=== PATIENT | female | born 2000 | race Caucasian/White ===

== ENCOUNTER 2022-06-01 15:48 | Emergency (ER) | payer OTHER ==
[~2022-06-01] VITALS: Ht 162.6 cm; Wt 47.7 kg
[2022-06-01] MEDS ORDERED: MULTTAB20 PO (16:04)
[2022-06-01 20:59] LABS: BASO # 0.1 10^3/uL (0.0-0.2); BASO % 0.6 % (0.0-1.0); EOS # 0.1 10^3/uL (0.0-0.5); EOS % 0.9 % (0.0-3.0); HEMATOCRIT 39.4 % (36.0-47.0); HEMOGLOBIN 13.5 g/dl (12.0-15.5); LYMPH # 1.8 10^3/uL (1.5-5.0); LYMPH % 21.4 % (24.0-44.0); MEAN CORPUSCULAR HEMOGLOBIN 29.6 pg (27.0-33.0); MEAN CORPUSCULAR HGB CONC 34.3 g/dl (32.0-36.5); MEAN CORPUSCULAR VOLUME 86.4 fl (80.0-96.0); MONO # 0.5 10^3/uL (0.0-0.8); MONO % 5.6 % (2.0-8.0); NEUTROPHILS # 6.1 10^3/uL (1.5-8.5); NEUTROPHILS % 71.3 % (36.0-66.0); PLATELET COUNT, AUTOMATED 210 10^3/uL (150-450); RED BLOOD COUNT 4.56 10^6/uL (4.00-5.40); WHITE BLOOD COUNT 8.6 10^3/uL (4.0-10.0)
[2022-06-01 21:25] LABS: LIPASE 49 U/L (12-53)
[2022-06-01 21:27] LABS: ALBUMIN 3.8 G/DL (3.2-5.2); ALKALINE PHOSPHATASE 49 U/L (46-116); ALT/SGPT 23 U/L (7.0-40); AST/SGOT 24 U/L (<34); BLOOD UREA NITROGEN 8 MG/DL (9-23); CALCIUM LEVEL 9.4 MG/DL (8.5-10.1); CARBON DIOXIDE LEVEL 25 MMOL/L (20-31); CHLORIDE LEVEL 101 MMOL/L (98-107); CREATININE FOR GFR 0.51 MG/DL (0.55-1.30); GLOMERULAR FILTRATION RATE > 60.0 (>60); GLUCOSE, FASTING 81 MG/DL (60-100); POTASSIUM SERUM 3.9 MMOL/L (3.5-5.1); SODIUM LEVEL 137 MMOL/L (136-145); TOTAL PROTEIN 6.5 G/DL (5.7-8.2)
[2022-06-01 21:28] LABS: BILIRUBIN,DIRECT 0.3 MG/DL (<0.4)
[2022-06-01] MEDS ORDERED: ONDANSETRON 4MG 2ML VIAL IV ONE (22:15)
[2022-06-01] MEDS ORDERED: NS 1,000 ML IV ONE (22:15)
[2022-06-01 22:58] LABS: APPEARANCE, URINE MANUAL CLEAR (CLEAR); COLOR, URINE MANUAL YELLOW (YELLOW)
[2022-06-01 23:00] LABS: BILIRUBIN, URINE MANUAL NEGATIVE (NEGATIVE); BLOOD URINE MANUAL NEGATIVE (NEGATIVE); GLUCOSE, URINE (UA) MANUAL NEGATIVE (NEGATIVE); KETONE, URINE MANUAL 3+ mg/dL (NEGATIVE); LEUKOCYTE ESTERASE, URINE MAN POSITIVE (NEGATIVE); NITRITE, URINE MANUAL NEGATIVE (NEGATIVE); PROTEIN, URINE MANUAL NEGATIVE (NEGATIVE); UROBILINOGEN, URINE MANUAL NORMAL (NORMAL)
[2022-06-01 23:14] LABS: BACTERIA, URINE SMALL AMOUNT; HYALINE CAST, URINE NONE SEEN /lpf (0-1); MUCUS, URINE MOD AMOUNT (NEGATIVE); RBC, URINE 0-1 /hpf (0-3); SQUAMOUS EPITHELIAL CELL URINE LARGE AMOUNT /hpf (SMALL AMT); WBC, URINE 15-20 /hpf (0-3)
[2022-06-01] MEDS ORDERED: ONDA4TAB6 PO (23:50)
[2022-06-01] MEDS ORDERED: CEPH500C PO (23:51)
[2022-06-02] VITALS: BP 97/51
== END 2022-06-02 00:08 | disposition home or self-care (01) ==
LOC: M ED 15:48
DX: O21.1 Hyperemesis gravidarum with metabolic disturbance (principal); E86.0 Dehydration; Z3A.14 14 weeks gestation of pregnancy; Z79.810 Long term (current) use of selective estrogen receptor modulators (SERMs); Z79.899 Other long term (current) drug therapy
CPT/HCPCS: 76815; 80048; 80076; 81000; 83690; 85025; 96361; 96374; 99284; J2405

== ENCOUNTER → 2022-07-11 | Outpatient (CLI) | payer OTHER ==
[~2022-07-11] MED LIST: CEPH500C PO; MULTTAB20 PO; ONDA4TAB6 PO
== END ==
LOC: M WHC 13:43
PROVIDERS: ATTEND Nurse Practitioner Women's Health
DX: Z34.82 Encounter for supervision of other normal pregnancy, second trimester (principal); Z3A.20 20 weeks gestation of pregnancy

== ENCOUNTER 2022-10-31 16:34 | Emergency (ER) | payer OTHER ==
[~2022-10-31] VITALS: Ht 162.6 cm; Wt 57.5 kg
[2022-10-31] MEDS ORDERED: ACETAMINOPHEN TAB 650MG DOSE (2X325MG) PO ONE (20:00)
[2022-10-31 21:31] VITALS: BP 113/62
== END 2022-10-31 21:30 | disposition home or self-care (01) ==
LOC: M ED 16:34
DX: O9A.213 Injury, poisoning and certain other consequences of external causes complicating pregnancy, third trimester (principal); S52.515A Nondisplaced fracture of left radial styloid process, initial encounter for closed fracture; Y92.009 Unspecified place in unspecified non-institutional (private) residence as the place of occurrence of the external cause; Z91.048 Other nonmedicinal substance allergy status; Z3A.36 36 weeks gestation of pregnancy; Z79.810 Long term (current) use of selective estrogen receptor modulators (SERMs); Z79.83 Long term (current) use of bisphosphonates; Z79.899 Other long term (current) drug therapy

== ENCOUNTER 2022-11-24 05:32 | Inpatient (IN) | payer OTHER ==
[~2022-11-24] VITALS: Ht 162.6 cm; Wt 60.3 kg
[2022-11-24] VITALS (28 sets, daily range): BP systolic 94–216; BP diastolic 52–85; O2SAT 100
[2022-11-24] MEDS ORDERED: VITAD400CA FT (05:59)
[2022-11-24] MEDS ORDERED: HOME MED LIST COMPLETE! XX SCH (06:00)
[2022-11-24] MEDS ORDERED: OXYTOCIN INJ 10UNITS/ML 1ML VIAL IM PRN (08:25)
[2022-11-24] MEDS ORDERED: OXYTOCIN DRIP 30 UNITS in IV 1 EA IV PRN ×4 (08:25)
[2022-11-24] MEDS ORDERED: METHYLERGONOVINE MALEATE 0.2MG/ML 1ML VIAL IM PRN (08:25)
[2022-11-24] MEDS ORDERED: NALBUPHINE HCL 10 MG/ML 1ML AMP IV PRN (08:25)
[2022-11-24] MEDS ORDERED: LIDOCAINE 1% MDV 20ML VIAL INFIL PRN (08:25)
[2022-11-24] MEDS ORDERED: TRANEXAMIC ACID INJection 1,000 MG in NS 100 ML IV PRN (08:25)
[2022-11-24] MEDS ORDERED: PROMETHAZINE 25MG/ML 1ML VIAL IV PRN (08:25)
[2022-11-24] MEDS ORDERED: LACTATED RINGER'S 1000 ML IV STA (08:45)
[2022-11-24] MEDS ORDERED: PENICILLIN G POTASSIUM 5 MU IV 5 MU in D5W MINI-BAG PLUS 100 ML IV STA (08:45)
[2022-11-24] MEDS: LR 1,000 ML IV SCH ×2 (09:10→17:18)
[2022-11-24 09:20] LABS: HEMATOCRIT 37.1 % (36.0-47.0); HEMOGLOBIN 11.7 g/dl (12.0-15.5); MEAN CORPUSCULAR HEMOGLOBIN 25.1 pg (27.0-33.0); MEAN CORPUSCULAR HGB CONC 31.5 g/dl (32.0-36.5); MEAN CORPUSCULAR VOLUME 79.6 fl (80.0-96.0); PLATELET COUNT, AUTOMATED 195 10^3/uL (150-450); RED BLOOD COUNT 4.66 10^6/uL (4.00-5.40); WHITE BLOOD COUNT 10.6 10^3/uL (4.0-10.0)
[2022-11-24] MEDS: PEN G POT 3,000,000 UNIT/50 ML 3,000,000 UNIT in IV 1 EA IV SCH ×3 (13:18→21:00)
[2022-11-24] MEDS ORDERED: ONDANSETRON 4MG 2ML VIAL IV PRN (15:10)
[2022-11-24] MEDS ORDERED: NALOXONE INJ 0.4MG/1ML VIAL IV PRN (15:10)
[2022-11-24] MEDS ORDERED: diphenhydrAMINE 50MG/ML VIAL IV PRN (15:10)
[2022-11-24] MEDS ORDERED: FENTANYL/ROPIVACAINE/NACL BAG 100 ML EPIDURAL SCH (15:10)
[2022-11-24] MEDS ORDERED: ePHEDrine SULFATE 25 MG/5 ML(5MG/ML) SYRINGE IVP PRN (15:10)
[2022-11-24] MEDS ORDERED: LR 500 ML IV PRN (15:10)
[2022-11-24] MEDS ORDERED: EPIDURAL/PCA KEYS XX PRN (15:10)
[2022-11-24] MEDS ORDERED: ANUSOL HC CREAM 30GM TOP PRN (18:50)
[2022-11-24] MEDS ORDERED: METHYLERGONOVINE MALEATE 0.2 MG TAB PO PRN (18:50)
[2022-11-24] MEDS ORDERED: OXYTOCIN DRIP 30 UNITS in IV 1 EA IV SCH ×4 (18:50)
[2022-11-24] MEDS ORDERED: RHOGAM 300MCG (1500IU) INJ IM SCH (18:50)
[2022-11-24] MEDS ORDERED: ACETAMINOPHEN 500 MG TAB PO PRN (18:50)
[2022-11-24] MEDS ORDERED: IBUPROFEN 600MG TAB PO PRN (18:50)
[2022-11-24] MEDS ORDERED: ACETAMINOPHEN TAB 650MG DOSE (2X325MG) PO PRN (18:50)
[2022-11-25] MEDS: DIBUCAINE 1% OINTMENT 30GM TOP PRN ×2 (00:53→18:29)
[2022-11-25] MEDS: IBUPROFEN 800 MG TAB PO PRN ×2 (00:55→18:30)
[2022-11-25 06:03] VITALS: BP 106/57; O2SAT 98
[2022-11-25 07:58] LABS: HEMATOCRIT 28.1 % (36.0-47.0); MEAN CORPUSCULAR HEMOGLOBIN 25.4 pg (27.0-33.0); MEAN CORPUSCULAR HGB CONC 31.7 g/dl (32.0-36.5); MEAN CORPUSCULAR VOLUME 80.1 fl (80.0-96.0); PLATELET COUNT, AUTOMATED 190 10^3/uL (150-450); RED BLOOD COUNT 3.51 10^6/uL (4.00-5.40); WHITE BLOOD COUNT 12.3 10^3/uL (4.0-10.0)
[2022-11-25 08:02] LABS: HEMOGLOBIN 8.9 g/dl (12.0-15.5)
[2022-11-25] MEDS: DOCUSATE SODIUM 100MG CAPSULE PO PRN ×2 (08:23→21:17)
[2022-11-25] MEDS: PRENATAL VITAMINS CHEWABLE TABLET PO SCH (08:23)
[2022-11-25 18:00] VITALS: BP 98/57
[2022-11-26 06:00] VITALS: BP 105/66; O2SAT 99
[2022-11-26] MEDS: IBUPROFEN 800 MG TAB PO PRN (06:22)
[2022-11-26] MEDS: PRENATAL VITAMINS CHEWABLE TABLET PO SCH (08:18)
[2022-11-26] MEDS ORDERED: ACET1TAB55 PO (08:44)
[2022-11-26] MEDS ORDERED: COLA100C5 PO (08:44)
[2022-11-26] MEDS ORDERED: IBUP-1022 PO (08:44)
[2022-11-26] MEDS ORDERED: MEASLES,MUMPS,RUBELLA VACCINE INJ (MMR-II) SC.IMMUN ONE (09:00)
== END 2022-11-26 12:55 | disposition home or self-care (01) | DRG 807 ==
LOC: M LDO 05:32 → M LDI 08:12 → M OBS 20:40
PROVIDERS: ADMIT Obstetrics & Gynecology; ATTEND Obstetrics & Gynecology
PROC: 10E0XZZ Delivery of Products of Conception, External Approach (ICD-10-PCS; principal; 2022-11-24)
PROC: 0KQM0ZZ Repair Perineum Muscle, Open Approach (ICD-10-PCS; 2022-11-24)
PROC: 10907ZC Drainage of Amniotic Fluid, Therapeutic from Products of Conception, Via Natural or Artificial Opening (ICD-10-PCS; 2022-11-24)
DX: O70.1 Second degree perineal laceration during delivery (principal); Z37.0 Single live birth; O99.824 Streptococcus B carrier state complicating childbirth; Z3A.39 39 weeks gestation of pregnancy; O69.81X0 Labor and delivery complicated by cord around neck, without compression, not applicable or unspecified; O99.03 Anemia complicating the puerperium

== ENCOUNTER → 2023-09-12 | Outpatient (CLI) | payer OTHER ==
[~2023-09-12] MED LIST changes: +ACET1TAB55 PO; +COLA100C5 PO; +IBUP-1022 PO; +VITAD400CA FT
== END ==
LOC: M WUC 14:30
PROVIDERS: ATTEND Physician Assistant
DX: M94.0 Chondrocostal junction syndrome [Tietze] (principal)

== ENCOUNTER → 2025-03-20 | Outpatient (CLI) | payer OTHER ==
[~2025-03-20] MED LIST changes: -IBUP-1022 PO; +IBUP600T42 PO; +METHACHOLINE KIT (6 VIAL.NEB PREMIX) INH ONE; +ONDA-282 PO; -ONDA4TAB6 PO
== END ==
LOC: M CARPUL 10:42
PROVIDERS: ATTEND Physician Assistant
DX: R06.02 Shortness of breath (principal)
CPT/HCPCS: 94070; 95070; J7674